=== PATIENT | female | born 1995 | race American Indian/Alaskan Native ===

== ENCOUNTER 2018-01-17 16:05 | Emergency (ER) | payer OTHER ==
[2018-01-17 17:00] VITALS: BP 122/91
--- NOTE | 2018-01-17 19:40 | Emergency Department Report ---
ED Abdominal Pain HPI - General Chief Complaint: Urogenital-Female Stated Complaint: KIDNEY PAIN Time Seen by Provider: 01/17/18 19:20 Source: patient Mode of arrival: Ambulatory Limitations: No Limitations - History of Present Illness Initial Comments: Pt reports UTI sx x 1 week, R flank pain x a few days, intermittent nausea. Also vaginal itching and burning, requesting exam for evaluation. MD Complaint: flank pain -: Gradual, days(s) (3) Location: R flank Radiation: none Migration to: no migration Severity: moderate Severity scale (0 -10): 5 Quality: aching Consistency: constant Improves With: nothing Worsens With: nothing Associated Symptoms: nausea, dysuria. denies: vomiting, diarrhea, constipation - Related Data Previous Rx's Medication Instructions Recorded Last Taken Type Cephalexin [Keflex] 500 mg PO TID #30 capsule 01/17/18 Unknown Rx Valacyclovir HCl [Valtrex] 2,000 mg PO BID #4 tablet 01/17/18 Unknown Rx Allergies Allergy/AdvReac Type Severity Reaction Status Date / Time amoxicillin AdvReac Hives Verified 01/17/18 16:56 azithromycin AdvReac Angioedema Verified 01/17/18 16:56 ED Review of Systems ROS: Stated complaint: KIDNEY PAIN Other details as noted in HPI Constitutional: denies: chills, fever Eyes: denies: eye pain, eye discharge, vision change ENT: denies: ear pain, throat pain Respiratory: denies: cough, shortness of breath, wheezing Cardiovascular: denies: chest pain, palpitations Endocrine: no symptoms reported Gastrointestinal: nausea. denies: abdominal pain, diarrhea Genitourinary: urgency, dysuria, frequency, discharge Musculoskeletal: back pain. denies: joint swelling, arthralgia Skin: denies: rash, lesions Neurological: denies: headache, weakness, paresthesias Psychiatric: denies: anxiety, depression Hematological/Lymphatic: denies: easy bleeding, easy bruising ED Past Medical Hx - Past Medical History Previous Medical History?: No - Surgical History Past Surgical History?: No - Social History Smoking Status: Never Smoker Substance Use Type: None - Medications Home Medications: Home Medications Medication Instructions Recorded Confirmed Last Taken Type Cephalexin [Keflex] 500 mg PO TID #30 capsule 01/17/18 Unknown Rx Valacyclovir HCl [Valtrex] 2,000 mg PO BID #4 tablet 01/17/18 Unknown Rx ED Physical Exam - General Limitations: No Limitations General appearance: alert, in no apparent distress - Head Head exam: Present: atraumatic, normocephalic - Eye Eye exam: Present: normal appearance - ENT ENT exam: Present: mucous membranes moist - Neck Neck exam: Present: normal inspection - Respiratory Respiratory exam: Present: normal lung sounds bilaterally. Absent: respiratory distress, wheezes - Cardiovascular Cardiovascular Exam: Present: regular rate, normal rhythm. Absent: systolic murmur, diastolic murmur, rubs, gallop - GI/Abdominal GI/Abdominal exam: Present: soft, normal bowel sounds. 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 ) Bi-manual exam: Present: normal bi-manual exam - Extremities Exam Extremities exam: Present: normal inspection - Back Exam Back exam: Present: normal inspection, CVA tenderness (R) (mild). Absent: CVA tenderness (L) - Neurological Exam Neurological exam: Present: alert, oriented X3 - Psychiatric Psychiatric exam: Present: normal affect, normal mood - Skin Skin exam: Present: warm, dry, intact, normal color. Absent: rash ED Course Vital Signs 01/17/18 16:56 Temperature 99.6 F Pulse Rate 78 Respiratory 20 Rate Blood Pressure 122/91 O2 Sat by Pulse 99 Oximetry ED Medical Decision Making - Lab Data UA shows UTI, wet prep essentially normal - Medical Decision Making Pt here with UTI symptoms, R flank pain, vaginal irritation. UA shows UTI. Pelvic exam shows few HSV lesion. Plan is Rocephin IM here, keflex x 10 days due to flank pain and valtrex for d/c. F/U PCP. - Differential Diagnosis UTI, STI, HSV Critical care attestation.: If time is entered above; I have spent that time in minutes in the direct care of this critically ill patient, excluding procedure time. ED Disposition Clinical Impression: HSV (herpes simplex virus) anogenital infection UTI (urinary tract infection) Qualifiers: Urinary tract infection type: site unspecified Hematuria presence: without hematuria Qualified Code(s): N39.0 - Urinary tract infection, site not specified Disposition: - TO HOME OR SELFCARE Is pt being admited?: No Condition: Good Instructions: Genital Herpes Simplex (ED), Urinary Tract Infection in Women (ED ) Additional Instructions: The remaining pelvic cultures will result within 72 hours. You will be called with any abnormalities. Prescriptions: Cephalexin [Keflex] 500 mg PO TID #30 capsule Valacyclovir HCl [Valtrex] 2,000 mg PO BID #4 tablet Referrals: PRIMARY CARE, [Primary Care Provider] - 3-5 Days Time of Disposition: 21:10
[2018-01-17 20:03] LABS: Bacteria,Urine 1+ /HPF (Negative); Bilirubin,Urine NEG (Negative); Blood,Urine NEG (Negative); Color,Urine Yellow (Yellow); Mucus,Urine FEW /HPF; Protein,Urine <15 mg/dL mg/dL (Negative); Urobilinogen,Urine < 2.0 mg/dL (<2.0)
[2018-01-17 20:09] LABS: HCG Qualitative,Urine Negative (Negative)
[2018-01-17] MEDS ORDERED: XYLOCAINE 1% MPF 5 mL INFILTRATI ONE (20:26)
[2018-01-17] MEDS ORDERED: ROCEPHIN IM ONE (20:26)
== END 2018-01-17 21:20 | disposition home or self-care (01) ==
LOC: ED 16:05
DX: N39.0 Urinary tract infection, site not specified (principal); B00.9 Herpesviral infection, unspecified; Z88.1 Allergy status to other antibiotic agents
CPT/HCPCS: 81001; 81025; 87086; 87210; 87591; 96372; 99284; J0696